=== PATIENT | female | born 1955 | race Caucasian/White ===

== ENCOUNTER 2017-02-09 21:04 | Emergency (ER) | payer BC ==
--- NOTE | ~2017-02-09 | ER ---
PATIENT'S NAME: SOL CORREA [facility] AGE: 61 Y [address] ROOM: [place] [address] LOCATION: [facility] ADMIT DATE: 02/09/2017 ER/Outpatient Report DISCHARGE DATE: 02/10/2017 FAMILY PHYSICIAN: Gabi Gibson MD ATTENDING PHYSICIAN: Rhett Rea CHIEF COMPLAINT: Left leg pain and chest discomfort. HISTORY OF PRESENT ILLNESS: The patient states she has a history of blood clots. She has been feeling feverish and poorly over the last few days. She has not been taking her Xarelto as she "completed her therapy." She has had a little bit of cough with this. She denies any other acute issues. She has been feverish off and on. She is from [place], [place], but was here visiting family and felt worse. 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 The exact etiology of her prior clotting disorder is unclear. Her symptoms started approximately 3 days ago and has been slowly progressing. She thinks she has had some new blood clots in her legs for quite a while though. PAST MEDICAL HISTORY: Documented on the record and reviewed by me. SOCIAL HISTORY: Documented on the record and reviewed by me. MEDICATIONS: Documented on the record and reviewed by me. ALLERGIES: DOCUMENTED ON THE RECORD AND REVIEWED BY ME. REVIEW OF SYSTEMS: All systems reviewed and negative except as noted in the HPI. PHYSICAL EXAMINATION: VITAL SIGNS: Blood pressure 140/80, pulse 98, respiratory rate 16, temperature 101.3, SpO2 is 98% on room air. Pain is rated at 5/10. GENERAL: Age appropriate female, in no obvious pain or distress. Resting comfortably on exam table. HEENT: Normocephalic, atraumatic. Eyes are PERRL. Oropharynx is clear. NECK: Supple. Trachea is midline. NEUROLOGIC: Awake and alert. GCS 15. No focal deficits. No asymmetry. CHEST: Heart is regular rate and rhythm with no murmurs. LUNGS: Clear to auscultation bilaterally with no rhonchi, wheezes, or rales. PATIENT'S NAME: SOL CORREA [facility] AGE: 61 Y [address] ROOM: [place] [address] LOCATION: [facility] ADMIT DATE: 02/09/2017 ER/Outpatient Report DISCHARGE DATE: 02/10/2017 FAMILY PHYSICIAN: Gabi Gibson MD ATTENDING PHYSICIAN: Rhett Rea ABDOMEN: Soft, nontender, and nondistended. No rebound or guarding. BACK: Nontender to palpation throughout. SKIN: Warm, dry, and intact. EXTREMITIES: Notable for some slight fullness of the left calf with some popliteal tenderness. No clear DVT or thrombophlebitis. LABORATORY DATA AND X-RAYS: CT of PE protocol is notable for multiple small bilateral PEs. Bilateral DVT ultrasound reveals bilateral DVTs throughout the calves and popliteal distributions. EKG sinus rhythm, rate of 94 with normal intervals and axis. No signs of acute ischemia. Procalcitonin is below threshold. CMS is notable for no significant abnormalities. Troponin is below threshold. CRP is 14.8. HCG is undetectable. CBC is without significant abnormalities. INR is 1.0. Influenza A and B are negative. Serum lactate is 1.9. IMPRESSION: Bilateral deep venous thrombosis and bilateral pulmonary embolisms, hemodynamically stable with no compromise. EMERGENCY DEPARTMENT COURSE: The patient was seen and evaluated as above. Based on her history, DVT and PE most likely. Scans obtained as above. She was given Lovenox 80 mg in the emergency department 1 per kilo. We will start her on Xarelto and have her follow up with her usual provider earlier this week. Return immediately if any worse. No evidence of pneumonia, attributing the inflammatory response for the DVT. All questions were answered. The patient was discharged in good condition. MD EVE DANIEL/chidil /[id number] d: [birth year]10/170 t: 02/20/17 0844, OUTPATIENT REPORT
--- NOTE | ~2017-02-09 | ENPV ---
Vascular Lower Extremities DVT Study Procedure Demographics Patient Name SOL CORREA Date of Study 02/09/2017 Patient Number [id number] Gender Female Date of 1955 Age 61 Visit Number [id number] Height Accession Number [id number] Weight Room Number BSA BMI Referring Rona Delaney MD Interpreting Perico Ames MD Physician Physician Physician Ordering Physician Rona Delaney MD [employer] Control System Computer Scientist Pushpa Luna [facility] Conclusions Summary There is acute occlusive DVT seen in the right Popliteal vein and as well in the Popliteal trunk and posterior and peroneal calf veins. Positive for DVT right lower extremity. There is chronic partial DVT in the left mid and distal segments of the femoral vein in the Popliteal and trunk vessels as well as the peroneal calf veins. Positive for DVT left lower extremity. Bilaterally positive for DVT Procedure Type of Study: Veins:Lower Extremities DVT Study, Venous Duplex Lower Extremity Bilateral. Appropriate Use Criteria:7 Allergies - No known allergies. Patient Status:Routine. Study Location:Inpatient Portable. Technical Quality:Good visualization. - Preliminary reported to:Dr. Rea. Velocities are measured in cm/s ; Diameters are measured in cm Right Lower Extremities DVT Study Measurements Right 2D and Doppler Measurements + + + + +------+------+ + !Location !Visualized!Compressibility!Thrombosis!Signal!Reflux!Reflux ! ! ! ! ! ! ! !(sec) ! + + + + +------+------+ + !GSV Thigh !Yes !Yes !None !Phasic!No ! ! + + + + +------+------+ + !Common !Yes !Yes !None !Phasic!No ! ! !Femoral ! ! ! ! ! ! ! + + + + +------+------+ + !Prox !Yes !Yes !None !Phasic!No ! ! !Femoral ! ! ! ! ! ! ! + + + + +------+------+ + !Mid Femoral!Yes !Yes !None !Phasic!No ! ! + + + + +------+------+ + !Dist !Yes !Yes !None !Phasic!No ! ! !Femoral ! ! ! ! ! ! ! + + + + +------+------+ + !Popliteal !Yes !No !Sub-acute ! ! ! ! + + + + +------+------+ + !PTV !Yes !No !Sub-acute ! ! ! ! + + + + +------+------+ + !Peroneal !Yes !No !Sub-acute ! ! ! ! + + + + +------+------+ + Left Lower Extremities DVT Study Measurements Left 2D and Doppler Measurements + + + + +------+------+ + !Location !Visualized!Compressibility!Thrombosis!Signal!Reflux!Reflux ! ! ! ! ! ! ! !(sec) ! + + + + +------+------+ + !GSV Thigh !Yes !Yes !None !Phasic!No ! ! + + + + +------+------+ + !Common !Yes !Yes !None !Phasic!No ! ! !Femoral ! ! ! ! ! ! ! + + + + +------+------+ + !Prox !Yes !Yes !None !Phasic!No ! ! !Femoral ! ! ! ! ! ! ! + + + + +------+------+ + !Mid Femoral!Yes !Partial !None !Phasic!No ! ! + + + + +------+------+ + !Dist !Yes !Partial !None !Phasic!No ! ! !Femoral ! ! ! ! ! ! ! + + + + +------+------+ + !Popliteal !Yes !Partial !None !Phasic!No ! ! + + + + +------+------+ + !PTV !Yes !No !Chronic !Phasic!No ! ! + + + + +------+------+ + !Peroneal !Yes !No !Chronic !Phasic!No ! ! + + + + +------+------+ + Impressions Right Impression There is acute occlusive DVT seen in the right Popliteal vein and as well in the Popliteal trunk and posterior and peroneal calf veins. Positive for DVT right lower extremity. Left Impression There is chronic partial DVT in the left mid and distal segments of the femoral vein in the Popliteal and trunk vessels as well as the peroneal calf veins. Positive for DVT left lower extremity. Signature dtt: [employer]RISTOB[employer] dtel: 02/09/17 2217 Physician Self Edit
[2017-02-09 22:00] LABS: BASOPHIL % 0.3 %; EOSINOPHIL # 0.2 K/uL (0.0-0.5); EOSINOPHIL % 2.6 %; HEMATOCRIT 37.7 % (33.0-46.0); HEMOGLOBIN 12.4 g/dL (10.0-15.0); IMMATURE GRANULOCYTE % 0.2 %; LYMPHOCYTE # 1.5 K/uL (0.8-4.0); LYMPHOCYTE % 16.1 %; MCH 30.5 pg (27.0-34.0); MCHC 32.9 gm/dL (32.0-36.5); MCV 92.9 fl (83.0-98.0); MONOCYTE # 1.3 K/uL (0.0-1.0); MONOCYTE % 13.6 %; MPV 9.1 fl (9.4-12.4); NEUTROPHIL # (ANC) 6.3 K/uL (1.8-7.8); NEUTROPHIL % 67.2 %; NRBC % 0 /100WBC (0-0.00); PLATELET COUNT 220 K/uL (150-450); RBC 4.06 M/uL (3.50-5.50); RDW-CV 11.9 % (11.9-14.6); WBC 9.4 K/uL (4.0-11.0)
[2017-02-09 22:09] LABS: PTT 27 SECONDS (25-32)
[2017-02-09 22:21] LABS: ALBUMIN 3.6 gm/dL (3.5-5.0); ALK PHOS 138 IU/L (33-138); ALT 26 IU/L (12-78); ANION GAP 13.4 (10.0-19.0); AST 29 IU/L (10-40); BLOOD UREA NITROGEN 13 mg/dL (6-24); CALCIUM 8.7 mg/dL (8.5-10.5); CHLORIDE 104 mMol/L (96-110); CO2 25 mMol/L (22-32); CREATININE 0.9 mg/dL (0.5-1.1); ESTIMATED GFR (MDRD EQUATION) > 60; POTASSIUM 3.4 mMol/L (3.7-5.1); SODIUM 139 mMol/L (135-145); TOTAL BILIRUBIN 0.3 mg/dL (0.0-1.5); TOTAL PROTEIN 8.1 g/dL (6.0-8.4)
== END 2017-02-10 00:18 | disposition disaster alternative care site (69) ==
LOC: GMED 21:04
PROVIDERS: Emergency Medicine
DX: I82.403 Acute embolism and thrombosis of unspecified deep veins of lower extremity, bilateral (principal); I26.99 Other pulmonary embolism without acute cor pulmonale
CPT/HCPCS: J1650; Q9967